=== PATIENT | female | born 1985 | race African-American/Black ===

== ENCOUNTER 2017-07-27 05:42 | Emergency (ER) | payer OTHER ==
[~2017-07-27] VITALS: Ht 170.2 cm; Wt 190.5 kg
[2017-07-27] MEDS ORDERED: Norco 5mg/325mg tab ORAL ONE (06:00)
[2017-07-27] MEDS ORDERED: Bactrim-DS 1 tab ORAL ONE (06:00)
[2017-07-27 06:13] VITALS: BP 112/54
[2017-07-27] MEDS ORDERED: DOXYCYCLINE MO100 MG ORAL (06:18)
[2017-07-27] MEDS ORDERED: HYDROCODON-ACE1 EA15 ORAL (06:18)
--- NOTE | 2017-07-27 06:19 | Emergency Room Report ---
History of Present Illness General Chief Complaint: Lower Extremity Injury Source: Patient Present Illness HPI Is a 31-year-old female with a BMI of almost 66. She presents with right foot pain. Onset today. Initially felt like a rock in between her fourth and fifth toes. Now with pain on the dorsum of the foot. No fever chills. No trauma. No nausea no vomiting. Pain is 9 out of 10. Worse with walking and ambulation. Allergies: Coded Allergies: PENICILLINS (Verified Allergy, Unknown, 07/27/17) Patient History Past Medical History: see triage record, old chart reviewed Past Surgical History: none Pertinent Family History: none Social History: Denies: smoking Last Menstrual Period: "last month" Now: No Immunizations: other Reviewed Nursing Documentation: PMH: Agreed; PSxH: Agreed Nursing Documentation-PM Past Medical History: No Stated History Review of Systems Eye: Denies: eye pain, blurred vision ENT: Denies: ear pain, nose congestion, throat swelling Respiratory: Denies: cough, shortness of breath Cardiovascular: Denies: chest pain, palpitations Gastrointestinal: Denies: abdominal pain, diarrhea, nausea, vomiting Musculoskeletal: Reports: joint pain, muscle pain; Denies: back pain Skin: Denies: rash Neurological: Denies: headache, numbness Endocrine: Denies: increased thirst, increased urine Hematologic/Lymphatic: Denies: easy bruising All Other Systems: negative except mentioned in HPI Physical Exam Vital Signs Date Time Temp Pulse Resp B/P (MAP) Pulse Ox O2 Delivery O2 Flow Rate FiO2 07/27/17 05:42 98.5 79 18 119/72 98 Room Air 98.4 vitals and normal Sp02 EP Interpretation: reviewed, normal General Appearance: well appearing, no apparent distress, alert, obese Head: normocephalic, atraumatic Eyes: bilateral eye PERRL, bilateral eye EOMI ENT: hearing grossly normal, normal pharynx Neck: full range of motion, supple, no meningismus Respiratory: chest non-tender, lungs clear, normal breath sounds Cardiovascular #1: regular rate, rhythm, no murmur Gastrointestinal: normal bowel sounds, non tender, no mass, no organomegaly, no bruit, non-distended Musculoskeletal: back normal, normal range of motion, other - Dorsum of right foot: There is mild edema and warmth over the dorsum of the foot around the third to fifth metatarsal area. No crepitance. Sensation normal. Full range of motion. No knee pain. Psychiatric: mood/affect normal Skin: warm/dry Medical Decision Making Diagnostic Impression: Primary Impression: Cellulitis of right foot without toes ER Course Patient with cellulitis of the foot. No evidence of deep infection. No crepitance or abscess. No fracture. this may also be gout. We'll discharge home. It was no break in the Skin of the webspaces Other X-Ray Diagnostic Results Other X-Ray Diagnostic Results : X-Ray ordered: right foot x-rays # of Views/Limited Vs Complete: 3 View Indication: Pain EP Interpretation: Yes Interpretation: no dislocation, no soft tissue swelling, no fractures Impression: No acute disease Electronically Signed by: Augustus Guerrero MD Last Vital Signs Date Time Temp Pulse Resp B/P (MAP) Pulse Ox O2 Delivery O2 Flow Rate FiO2 07/27/17 05:42 98.5 79 18 119/72 98 Room Air 98.4 Status: improved Disposition: HOME, SELF-CARE Condition: Stable Scripts Hydrocodone/Acetaminophen 5-325* (HYDROCODONE/ACETAMINOPHEN 5-325*) 1 Each Tablet 1 TAB ORAL Q6H PRN for For Pain, #30 TAB 0 Refills Prov: AUGUSTUS GUERRERO M.D. 07/27/17 Doxycycline Monohydrate* (DOXYCYCLINE MONOHYDRATE*) 100 Mg Capsule 100 MG ORAL Q12H, #14 CAP 0 Refills Prov: AUGUSTUS GUERRERO M.D. 07/27/17 Referrals: [facility],REFERRING (PCP) Additional Instructions: Follow-up your doctor in 2-3 days for recheck. Return if symptom worsen. Keep foot elevated. AUGUSTUS GUERRERO M.D. Jul 27, 2017 06:19
[2017-07-27 06:32] VITALS: BP 112/54
--- NOTE | 2017-07-27 11:29 | Diagnostic Imaging Report ---
Indications: Reason For Exam: PAIN Technique: 3 views of the right foot Comparison: None Findings: No acute fractures. No dislocations. Joint spaces are preserved. No radiopaque foreign body. Normal mineralization. There is mild metatarsus adductus Impression: No acute process
== END 2017-07-27 10:00 | disposition home or self-care (01) ==
LOC: EDBD 05:42 → EMR 06:06
DX: L03.90 Cellulitis, unspecified (principal); Z88.0 Allergy status to penicillin
CPT/HCPCS: 99284